=== PATIENT | female | born 1950 | race American Indian/Alaskan Native ===

== ENCOUNTER 2018-07-09 08:41 | Day surgery (SDC) | payer MEDICARE ==
[2018-07-09 09:11] VITALS: BMI 29.8
[2018-07-09 09:39] VITALS: BP 133/76; PULSE 83; RESP 16; TEMP 97.8; O2SAT 99
[2018-07-09] MEDS ORDERED: DiphenhydrAMINE 50 mg/ml Inj ONE (11:48)
[2018-07-09] MEDS ORDERED: Propofol 10 mg/ml Inj (20 ML) ONE ×2 (11:49→12:15)
== END 2018-07-09 13:30 | disposition home or self-care (01) ==
LOC: C.ENDO 08:41
PROVIDERS: ATTEND Internal Medicine Gastroenterology
DX: K21.0 Gastro-esophageal reflux disease with esophagitis (principal); K29.50 Unspecified chronic gastritis without bleeding; Z12.11 Encounter for screening for malignant neoplasm of colon; D12.2 Benign neoplasm of ascending colon; K64.1 Second degree hemorrhoids
CPT/HCPCS: 43239; 45385; 88305; J1200; J2001; J2704